=== PATIENT | male | born 1970 | race Caucasian/White ===

== ENCOUNTER 2016-06-18 12:09 | Emergency (ER) | payer OTHER, MEDICAID ==
[~2016-06-18] VITALS: Ht 185.4 cm; Wt 72.6 kg
[2016-06-18 12:22] VITALS: BP 136/94
[2016-06-18] MEDS ORDERED: COLACE100 M1 PO (12:28)
[2016-06-18] MEDS ORDERED: DEPAKOTE ER250 MG PO (12:28)
[2016-06-18] MEDS ORDERED: SEROQUEL400 MG PO (12:28)
[2016-06-18] MEDS ORDERED: ZOLOFT100 MG PO (12:28)
[2016-06-18] MEDS ORDERED: BUSPAR5 MG PO (12:28)
[2016-06-18] MEDS ORDERED: KLONOPIN0.5 MG PO (12:28)
--- NOTE | 2016-06-18 12:30 | NUR ---
PT AMBULATED TO BED 3 WITH ASSISTANCE.
--- NOTE | 2016-06-18 12:36 | NUR ---
PT CAME TO ER DUE TO SWOLLEN RIGHT FOOT X2 DAYS WITH WOUND ON RIGHT GARDNER. PT IS NON VERBAL. FACIAL GRIMMACING NOTED. NO ACUTE DISTRESS NOTED. MUFFLE OPERATOR AT BEDSIDE. MUFFLE OPERATOR DENIES ANY FEVER, CP ,SOB ,VOMITTING. POSITION TO COMFORT. MD MADE AWARE OF PT'S CONDITION.
--- NOTE | 2016-06-18 13:00 | NUR ---
DR. JASON EVALUATING PATIENT AT BEDSIDE.
--- NOTE | 2016-06-18 13:23 | NUR ---
Patient discharged with v/s stable. Written and verbal after care instructions given and explained TO CAREGIVER. Patient alert, oriented. CAREGIVER verbalized understanding of instructions. Ambulatory with steady gait. All questions addressed prior to discharge. ID band removed. Patient AND CAREGIVER advised to follow up with PMD. Rx of MOTRIN,KEFLEX AND BACTRIM given. Patient AND CAREGIVER educated on indication of medication including possible reaction and side effects. Opportunity to ask questions provided and answered.
[2016-06-18 13:26] VITALS: BP 136/94
== END 2016-06-18 13:23 | disposition home or self-care (01) ==
LOC: MED 12:09
DX: L03.115 Cellulitis of right lower limb (principal); Z79.899 Other long term (current) drug therapy

== ENCOUNTER 2016-09-26 10:47 | Emergency (ER) | payer OTHER, MEDICAID ==
[~2016-09-26] VITALS: Ht 185.4 cm; Wt 68.0 kg
[~2016-09-26 10:47] MED LIST: BUS5 PO; CLON0.5T PO; DIVA250T PO; DOCU-67 PO; QUET400T PO; SERT100T PO
[2016-09-26 10:57] VITALS: BP 118/85
--- NOTE | 2016-09-26 11:07 | NUR ---
Patient ambulated to bed 08.
--- NOTE | 2016-09-26 11:08 | NUR ---
46/M BIB FROM FACILITY C/O LEFT EAR DRAINAGE ; CPG NOTED YESTERDAY; HX OF BEHAVIORAL DISORDERS, SCHIZOPHRENIA, AUTISM, INTELECTUAL DISABILITY, CP,AUTO ISCHEMIC HEART DISEASE. CPG DENIES PT HAS N/V/D; SKIN IS PINK/WARM/DRY; PT NON VERBAL,ACT APPROPRIATES BASELINE. LUNGS CLEAR BL; HR EVEN AND REGULAR; VSS; PATIENT POSITIONED FOR COMFORT; HOB ELEVATED; BEDRAILS UP X2; BED DOWN. ER MD MADE AWARE OF PT STATUS.
--- NOTE | 2016-09-26 11:30 | NUR ---
Dr. Taylor evaluating patient at bedside.
[2016-09-26 11:46] VITALS: BP 118/85
--- NOTE | 2016-09-26 11:46 | NUR ---
Patient discharged with v/s stable. Written and verbal after care instructions given and explained. Patient alert, oriented and verbalized understanding of instructions. Ambulatory with steady gait. All questions addressed prior to discharge. ID band removed. Patient advised to follow up with PMD. Rx of CORTISPORIN given. Patient educated on indication of medication including possible reaction and side effects. Opportunity to ask questions provided and answered.
== END 2016-09-26 11:46 | disposition home or self-care (01) ==
LOC: MED 10:47
DX: H60.92 Unspecified otitis externa, left ear (principal); Z79.899 Other long term (current) drug therapy
CPT/HCPCS: 99283

== ENCOUNTER 2017-01-17 09:21 | Emergency (ER) | payer OTHER, MEDICAID ==
[~2017-01-17] VITALS: Ht 182.9 cm; Wt 65.3 kg
[2017-01-17 09:37] VITALS: BP 110/69
--- NOTE | 2017-01-17 09:44 | NUR ---
PATIENT AMBULATED TO ER BED 4.
--- NOTE | 2017-01-17 09:45 | NUR ---
PATIENT PRESENTS TO ED WITH RASH TO NECK, ARMS-- . PT STATES . DENIES N/V/D; SKIN IS PINK/WARM/DRY; AAOX4 WITH EVEN AND STEADY GAIT; LUNGS CLEAR BL; HR EVEN AND REGULAR; PT DENIES ANY FEVER, CP, SOB, OR COUGH AT THIS TIME; PATIENT STATES PAIN OF 0/10 AT THIS TIME; VSS; PATIENT POSITIONED FOR COMFORT; HOB ELEVATED; BEDRAILS UP X2; BED DOWN. ER MD MADE AWARE OF PT STATUS.
--- NOTE | 2017-01-17 09:52 | NUR ---
PATIENT BEING EVALUATED BY DR. ORDOÑEZ.
[2017-01-17 10:20] VITALS: BP 124/73
--- NOTE | 2017-01-17 10:20 | NUR ---
Patient discharged with v/s stable. Written and verbal after care instructions given and explained to primary child care teacher. Patient alert, oriented and verbalized understanding of instructions. Ambulatory with steady gait. All questions addressed prior to CLARITIN discharge. ID band removed. Patient and primary child care teacher advised to follow up with PMD. Rx of HYDROCORTISONE AND given. Patient educated on indication of medication including possible reaction and side effects. Opportunity to ask questions provided and answered.
== END 2017-01-17 10:20 | disposition home or self-care (01) ==
LOC: MED 09:21
DX: R21 Rash and other nonspecific skin eruption (principal); F84.0 Autistic disorder; F79 Unspecified intellectual disabilities; G80.9 Cerebral palsy, unspecified; Z79.899 Other long term (current) drug therapy
CPT/HCPCS: 99283

== ENCOUNTER 2017-09-16 09:43 | Emergency (ER) | payer MEDICAID, OTHER ==
[~2017-09-16] VITALS: Ht 185.4 cm; Wt 66.7 kg
[~2017-09-16 09:43] MED LIST changes: +DOCU-299 PO; -DOCU-67 PO
[2017-09-16 09:51] VITALS: BP 123/93
--- NOTE | 2017-09-16 09:55 | NUR ---
PT AMBULATED BACK TO LOBBY;VSS; PT ACCOMPANIED BY CARETAKERS
--- NOTE | 2017-09-16 10:51 | NUR ---
PT AMBULATED AT ER BED 09
--- NOTE | 2017-09-16 11:00 | NUR ---
47m bib caregivers with c/o right elbow pain, redness, and swelling x 2 days. Caregivers deny any fevers or n/v/d. Pt is non verbal. Per caregivers, pt is at neuro baseline. RR are even and unlabored. No acute distress. Awaiting er md walker. Will continue to monitor.
[2017-09-16] MEDS ORDERED: DEXAMETHASONE 10 MG/ML VIAL IM ONE (11:05)
[2017-09-16] MEDS ORDERED: CLINDAMYCIN 600 MG/4 ML VIAL IM ONE (11:05)
[2017-09-16 12:10] VITALS: BP 132/85
--- NOTE | 2017-09-16 12:10 | NUR ---
Patient discharged with v/s stable. Written and verbal after care instructions given and explained to caregiver. Caregiver alert, oriented and verbalized understanding of instructions. Patient ambulatory with steady gait. All caregiver questions addressed prior to discharge. ID band removed. Patient/caregiver advised to follow up with PMD. Rx of Bactroban and Clindamycin given. Caregiver/patient educated on indication of medication including possible reaction and side effects. Opportunity to ask questions provided and answered.
== END 2017-09-16 12:10 | disposition home or self-care (01) ==
LOC: MED 09:43
DX: L73.9 Follicular disorder, unspecified (principal); Z79.899 Other long term (current) drug therapy
CPT/HCPCS: 96372; 99284; J1100; J3490

== ENCOUNTER 2019-03-18 14:33 | Emergency (ER) | payer MEDICAID, OTHER ==
[~2019-03-18] VITALS: Ht 175.3 cm; Wt 69.4 kg
[2019-03-18 14:50] VITALS: BP 140/88
--- NOTE | 2019-03-18 14:53 | NUR ---
PT TO BED 3 WITH STEADY GAIT
--- NOTE | 2019-03-18 14:56 | NUR ---
pt bib caregiver from [facility] c/o v and congestion x today. lung sounds clear all throughout. abd soft and flat, nontender and active bs in all quads. caregiver at bedside. eugenia marti.
[2019-03-18] MEDS ORDERED: NACL 0.9% 1,000 ML IV ONE (16:05)
[2019-03-18] MEDS ORDERED: LORazepam 2 MG/ML VIAL IVP ONE (17:10)
[2019-03-18 17:13] LABS: BASOPHILS % (AUTO) 0.5 % (0.0-2.0); EOSINOPHILS % (AUTO) 0.2 % (0.0-4.0); HEMATOCRIT 39.7 % (36-52); HEMOGLOBIN 13.4 g/dL (12.0-18.0); LYMPHOCYTES # (AUTO) 0.9 K/uL (2.0-11.5); LYMPHOCYTES % (AUTO) 20.1 % (20.5-51.1); MEAN CORPUSCULAR HEMOGLOBIN 33 pg (27-31); MEAN CORPUSCULAR HGB CONC 34 g/dL (33-37); MEAN CORPUSCULAR VOLUME 97.1 fL (80-94); MONOCYTES # (AUTO) 0.7 K/uL (0.8-1.0); MONOCYTES % (AUTO) 14.2 % (1.7-9.3); PLATELET COUNT (AUTO) 235 K/uL (140-450); RED BLOOD CELL COUNT(AUTO) 4.08 MIL/uL (4.20-6.10); WHITE BLOOD COUNT (AUTO) 4.7 K/uL (4.8-10.8)
--- NOTE | 2019-03-18 17:38 | NUR ---
CAREGIVER STATES HE NEEDS TO LEAVE FOR 1 HOUR TO MEDICATE PT BACK AT [facility]. RODNEY [phone]
[2019-03-18 18:06] LABS: ANION GAP 9.8 (8-16); CARBON DIOXIDE 30.9 mmol/L (21-32); CREATININE 0.8 mg/dL (0.7-1.3); POTASSIUM 3.7 mmol/L (3.5-5.1); TOTAL BILIRUBIN 0.3 mg/dL (0.0-1.0)
[2019-03-18 18:07] LABS: ALBUMIN 3.3 g/dL (3.4-5.0)
--- NOTE | 2019-03-18 19:09 | NUR ---
CAREGIVER AT BEDSIDE.
[2019-03-18 19:11] LABS: APPEARANCE,URINE CLEAR (CLEAR); BILIRUBIN,URINE NEGATIVE (NEGATIVE); BLOOD, URINE 2+ (NEGATIVE); COLOR,URINE YELLOW (YELLOW); LEUKOCYTE ESTERASE ,URINE NEGATIVE (NEGATIVE); NITRITE, URINE NEGATIVE (NEGATIVE); UGLUCOSE NEGATIVE (NEGATIVE)
[2019-03-18 19:29] LABS: RBC,URINE 11-20 (MOD) /HPF (0-5); WBC,URINE 0-5 /HPF (0-5)
[2019-03-18 20:17] VITALS: BP 141/86
--- NOTE | 2019-03-18 20:18 | NUR ---
Patient discharged with v/s stable. Written and verbal after care instructions given and explained. Patient alert, oriented AND CAREGIVER UNDERSTANDS instructions. Ambulatory with by caregiver. All questions addressed prior to discharge. ID band removed. PatientS CAREGIVER advised to follow up with PMD. Rx of AZITHROMYCIN AND ZOFRAN given. PatienTS CAREGIVER educated on indication of medication including possible reaction and side effects. Opportunity to ask questions provided and answered.
== END 2019-03-18 20:18 | disposition home or self-care (01) ==
LOC: MED 14:33
DX: R11.10 Vomiting, unspecified (principal); J18.9 Pneumonia, unspecified organism; Z00.01 Encounter for general adult medical examination with abnormal findings; Z86.69 Personal history of other diseases of the nervous system and sense organs; Z86.79 Personal history of other diseases of the circulatory system; Z79.899 Other long term (current) drug therapy
CPT/HCPCS: 36415; 71045; 80053; 81001; 83690; 85025; 87804; 96361; 96374; 99284; C1758; J2060; J7030; Q0092